=== PATIENT | female | born 1945 | race Caucasian/White ===

== ENCOUNTER 2018-01-03 12:16 | Observation (INO) | payer MEDICARE, BC ==
[2018-01-03] MEDS ORDERED: Ondansetron 4 MG/2 ML SDV IV PRN (13:03)
[2018-01-03] MEDS ORDERED: Temazepam 15 MG Cap PO PRN (13:03)
[2018-01-03] MEDS ORDERED: Acetaminophen 325 MG Tab PO PRN (13:03)
[2018-01-03] MEDS ORDERED: Calcium Carbonate 500 MG Tab.Chew PO PRN (13:09)
[2018-01-03] MEDS ORDERED: Triamcinolone Acetonide 0.1% Crm 15 GM Tube TOP PRN (13:10)
[2018-01-03 13:55] LABS: CHLORIDE,CL 105 mEq/L (98-106); SODIUM,NA 139 mEq/L (136-145)
[2018-01-03] MEDS: Lactated Ringers 1,000 ML IV SCH ×2 (14:31→23:00)
[2018-01-03] MEDS ORDERED: Enoxaparin 30 MG/0.3 ML Syringe SUBCUT SCH (16:00)
[2018-01-03] MEDS ORDERED: cefTRIAXone 1 GM Vial IVPUSH SCH (17:15)
[2018-01-04] MEDS: Lactated Ringers 1,000 ML IV SCH (07:11)
[2018-01-04] MEDS ORDERED: Aspirin 81 MG Tab.EC PO SCH (08:00)
[2018-01-04 08:38] VITALS: BP 114/62
--- NOTE | 2018-01-04 08:48 | PN ---
DATE: 01/04/2018 Zhanna Ochoa came in with [id number] Meniere's, vomiting and dehydration. On examination in the morning, her nystagmus is better. She is up moving around. Physical therapy has helped a little bit. We will probably try physical therapy today and go from there. ELSI/JEN /[id number]
--- NOTE | 2018-01-04 13:53 | DISCH ---
HOSPITAL COURSE: This is an elderly white female who came in to the clinic staggering, vomiting, nausea from severe Meniere's with dehydration, admitted to the hospital, started on IV fluids, physical therapy, responded nicely. At the time of discharge, she was up moving around. No further nausea or vomiting. She had difficulty vomiting because she has recently had a Pia fundoplication. Lab here in the hospital, CBC looked good. Panel 14 good. Urinalysis, 160 ketones. She was given 1 g of Rocephin, question UTI but I doubt she had that. DISPOSITION: The patient is now discharged home after two treatments of physical therapy. DISCHARGE MEDICATIONS: Home medications plus meclizine. DISCHARGE DIAGNOSIS: ACUTE MENIERE'S. ELSI/JEN /[id number]
== END 2018-01-04 11:10 | disposition home or self-care (01) ==
LOC: CC.MS 12:40 → UNDOADMOB 12:40 → CC.MS 13:03
PROVIDERS: ADMIT General Practice; ATTEND General Practice
DX: H81.09 Meniere's disease, unspecified ear (principal); E78.5 Hyperlipidemia, unspecified; Z88.8 Allergy status to other drugs, medicaments and biological substances; Z79.82 Long term (current) use of aspirin; Z79.899 Other long term (current) drug therapy
CPT/HCPCS: 36415; 70450; 80053; 81001; 83735; 84443; 85025; 96361; 96372; 96374; 97112-GP; A9270-GY; G0378; J0696; J1650; J7120

== ENCOUNTER → 2018-01-11 | Day surgery (SDC) | payer MEDICARE, BC ==
[~2018-01-11] MED LIST: Propofol 200 MG/20 ML SDV IV ONE
[2018-01-11] MEDS: Lactated Ringers 1,000 ML IV SCH (09:59)
[2018-01-11 11:44] VITALS: BP 104/61
--- NOTE | 2018-01-14 08:05 | OR ---
DATE OF OPERATION: 01/11/2018 PREOPERATIVE DIAGNOSIS: 1. GASTROESOPHAGEAL REFLUX DISEASE. 2. ALTERED BOWEL HABITS. POSTOPERATIVE DIAGNOSIS: 1. GASTROESOPHAGEAL REFLUX DISEASE. 2. ALTERED BOWEL HABITS. SURGEON: Ander Link MD PROCEDURE: 1. ESOPHAGOGASTRODUODENOSCOPY WITH BIOPSIES X2, STEFAN. 2. FULL-LENGTH COLONOSCOPY WITH RANDOM BIOPSIES X4. ANESTHESIA: RACE STARTER due to chronic GERD. COMPLICATIONS: None. SPECIMEN: 1. Antral biopsy x2. 2. Antral STEFAN. 3. Four random colon biopsies. FINDINGS: 1. Full-length EGD. 2. Antral gastritis with multiple erosions/ulcerations. 3. Intact lap Pia without obvious GERD or distal esophagitis. 4. Full-length colonoscopy. 5. Sigmoid diverticulosis, [id number]. RECOMMENDATIONS: Medical followup with Dr. Parrish. INDICATIONS: The patient has been having some ongoing issues with heartburn. She has had altered bowel habits in the form of alternating episodes of diarrhea and constipation. She sent for upper and lower endoscopy. DESCRIPTION OF PROCEDURE: The patient was prepped and draped, placed in the left lateral decubitus position. A lubricated Olympus gastroscope was inserted and easily intubated in the esophagus. Esophageal lining was benign in its entire course. The Z-line was crisp and sharp around 40 cm. There was no obvious or significant loosening of her prior lap Pia wrap. The scope was easily intubated in the stomach through the pylorus and in the 2nd portion of the duodenum. This and the duodenal bulb were completely benign. The scope was brought back into the stomach and retroflexed. The upper fundus and cardia appeared unremarkable. Wrap looks intact. Scope was straightened. The rest of the fundus was benign. The patient has diffuse antral gastritis. There were at least 8-10 small erosions that were all clot covered and healing over showing some diffuse peptic ulcer disease of the distal portion of the stomach. Two biopsies of the areas were taken along with a STEFAN test. Air was then suctioned from the stomach and the scope removed without complication. A lubricated Olympus colonoscope was then inserted and ultimately and safely advanced to the cecum. The patient is extremely redundant and intolerant to the scope, but we were able to visualize the ileocecal valve and appendiceal orifice. The bowel prep was adequate. Upon withdrawal of the scope throughout the entire length of the colon, I could find no signs of any polyps, mass, ulceration, or bleeding sites. No vascular abnormalities or signs of colitis. Scattered diverticula are seen in the sigmoid colon. I did do random biopsies of the right transverse, splenic flexure, and sigmoid area, just due to her chronic diarrhea but no gross abnormalities were seen. The rectal vault was unremarkable. Retroflexion of scope in the rectum showed no anal lesions. Air was suctioned. Scope removed without complication. BEAU/JEN /[id number]
== END ==
LOC: CC.SDS 09:42
PROVIDERS: ATTEND Family Medicine
DX: K57.30 Diverticulosis of large intestine without perforation or abscess without bleeding (principal); K29.70 Gastritis, unspecified, without bleeding; K31.89 Other diseases of stomach and duodenum; K25.9 Gastric ulcer, unspecified as acute or chronic, without hemorrhage or perforation; R19.4 Change in bowel habit; E78.5 Hyperlipidemia, unspecified; Z79.82 Long term (current) use of aspirin; Z79.899 Other long term (current) drug therapy; Z98.890 Other specified postprocedural states; Z88.1 Allergy status to other antibiotic agents; Z88.8 Allergy status to other drugs, medicaments and biological substances; Z90.710 Acquired absence of both cervix and uterus; Z72.0 Tobacco use
CPT/HCPCS: 87081; J2704; J7120

== ENCOUNTER 2024-02-07 07:24 | Inpatient (IN) | payer MEDICARE, BC ==
[2024-02-07 08:38] LABS: BASOPHILS ABSOLUTE AUTO 0.02 10^3/uL (0.00-0.50); BASOPHILS PERCENT AUTO 0.1 % (0-1); EOSINOPHILS ABSOLUTE AUTO 0.02 10^3/uL (0.00-1.50); EOSINOPHILS PERCENT AUTO 0.1 % (0-6); HEMATOCRIT 47.2 % (37.0-47.0); HEMOGLOBIN 15.8 g/dL (12.0-16.0); IMMATURE GRAN ABSOLUTE AUTO 0.06 10^3/uL (0.00-0.49); IMMATURE GRAN PERCENT AUTO 0.4 % (0.0-4.9); LYMPHOCYTES ABSOLUTE AUTO 1.72 10^3/uL (0.60-5.00); LYMPHOCYTES PERCENT AUTO 11.9 % (24-44); MEAN CORPUSCULAR HEMOGLOBIN 32.9 pg (27.0-32.0); MEAN CORPUSCULAR HGB CONC 33.5 g/dL (32.0-36.0); MEAN CORPUSCULAR VOLUME 98.3 fL (83.0-97.0); MONOCYTES ABSOLUTE AUTO 1.14 10^3/uL (0.00-1.50); MONOCYTES PERCENT AUTO 7.9 % (0-10); NEUTROPHILS ABSOLUTE AUTO 11.51 x10^3/uL (1.80-8.00); NEUTROPHILS PERCENT AUTO 79.6 % (41-71); PLATELET COUNT,PLT 246 10^3/uL (150-400); WHITE BLOOD CELL COUNT,WBC 14.5 10^3/uL (4.0-11.0)
[2024-02-07 08:39] LABS: APPEARANCE,URINE CLEAR (CLEAR); BILIRUBIN,URINE NEGATIVE (NEGATIVE); COLOR,URINE YELLOW (YELLOW); GLUCOSE,URINE NEGATIVE (NEGATIVE); KETONES,URINE NEGATIVE (NEGATIVE); LEUKOCYTE ESTERASE,URINE SMALL (NEGATIVE); NITRITE,URINE NEGATIVE (NEGATIVE); OCCULT BLOOD,URINE NEGATIVE (NEGATIVE); PROTEIN,URINE NEGATIVE (NEGATIVE); UROBILINOGEN,URINE 0.2 EU/dL (0.2-1.0)
[2024-02-07 08:53] LABS: ALANINE AMINOTRANSFERASE,ALT 48 U/L (12-78); ALBUMIN 3.3 g/dL (3.4-5.0); ALKALINE PHOSPHATASE 70 U/L (46-116); ASPARTATE AMNIOTRANSFERASE,AST 23 U/L (15-37); BILIRUBIN TOTAL 0.6 mg/dL (0.0-1.0); BLOOD UREA NITROGEN,BUN 17 mg/dL (7-18); C-REACTIVE PROTEIN < 0.50 mg/dL (<=0.50); CALCIUM 8.6 mg/dL (8.4-10.1); CARBON DIOXIDE,CO2 28 mmol/L (21-32); CHLORIDE,CL 105 mEq/L (98-106); CREATININE 0.9 mg/dL (0.6-1.0); ESTIMATED GFR 66 mL/min (>=60); GLUCOSE RANDOM 91 mg/dL (75-99); POTASSIUM,K 3.5 mEq/L (3.5-5.0); PROTEIN TOTAL,TP 6.4 g/dL (6.4-8.2); SODIUM,NA 142 mEq/L (136-145)
[2024-02-07 09:00] LABS: BACTERIA,URINE FEW /HPF (NOT SEEN); EPITHELIAL CELLS,URINE FEW /HPF (NOT SEEN); RBC,URINE 0-5 /HPF (0-5); WBC CLUMPS,URINE FEW /HPF (NOT SEEN)
[2024-02-07] MEDS: Ciprofloxacin in D5W 400 MG in Premix Bag 1 BAG IV ONE (09:23)
[2024-02-07] MEDS ORDERED: Triamcinolone Acetonide 0.1% Crm 15 GM Tube TOP PRN (10:55)
[2024-02-07] MEDS ORDERED: Polyethylene Glycol 3350 Powder 17 GM Packet PO PRN (10:55)
[2024-02-07] MEDS ORDERED: Ondansetron 4 MG/2 ML SDV IV PRN (10:55)
[2024-02-07] MEDS ORDERED: Docusate Sodium 100 MG Cap PO PRN (10:55)
[2024-02-07] MEDS ORDERED: Ondansetron 4 MG Tab.DIS PO PRN (10:55)
[2024-02-07] MEDS: Sodium Chloride 0.9% 1,000 ML IV STA (12:33)
[2024-02-07] MEDS: Magnesium Oxide 400 MG Tab PO SCH (19:44)
[2024-02-07] MEDS: Aspirin 81 MG Tab.EC PO SCH (19:44)
[2024-02-07] MEDS: Calcium Carbonate/Vitamin D3 1250 MG-5 MCG Tab PO SCH (19:44)
[2024-02-07] MEDS: Zinc Sulfate 220 MG Cap PO SCH (19:44)
[2024-02-07] MEDS: Enoxaparin 40 MG/0.4 ML Syringe SUBCUT SCH (19:45)
[2024-02-07] MEDS: Ciprofloxacin in D5W 400 MG in Premix Bag 1 BAG IV SCH (19:45)
[2024-02-07] MEDS ORDERED: Non-Formulary Medication 1 Each (Ubidecarenone [Co Q-10] 100 MG Capsule) PO SCH (20:00)
[2024-02-07] MEDS ORDERED: Non-Formulary Medication 1 Each (Fish Oil/Omega-3 Fatty Acids [Fish Oil 1,000 Mg] 1 GM Cap PO SCH (20:00)
[2024-02-07] MEDS: Acetaminophen 325 MG Tab PO PRN (21:19)
[2024-02-08] MEDS: ESTROGEN ESTER PO SCH (07:57)
[2024-02-08] MEDS: TESTOSTERONE PO SCH (07:57)
[2024-02-08 07:58] LABS: BASOPHILS ABSOLUTE AUTO 0.02 10^3/uL (0.00-0.50); BASOPHILS PERCENT AUTO 0.2 % (0-1); EOSINOPHILS ABSOLUTE AUTO 0.02 10^3/uL (0.00-1.50); EOSINOPHILS PERCENT AUTO 0.2 % (0-6); HEMATOCRIT 46.5 % (37.0-47.0); HEMOGLOBIN 15.6 g/dL (12.0-16.0); IMMATURE GRAN ABSOLUTE AUTO 0.04 10^3/uL (0.00-0.49); IMMATURE GRAN PERCENT AUTO 0.4 % (0.0-4.9); LYMPHOCYTES ABSOLUTE AUTO 1.58 10^3/uL (0.60-5.00); LYMPHOCYTES PERCENT AUTO 13.9 % (24-44); MEAN CORPUSCULAR HEMOGLOBIN 33.5 pg (27.0-32.0); MEAN CORPUSCULAR HGB CONC 33.5 g/dL (32.0-36.0); MONOCYTES ABSOLUTE AUTO 0.77 10^3/uL (0.00-1.50); MONOCYTES PERCENT AUTO 6.8 % (0-10); NEUTROPHILS ABSOLUTE AUTO 8.97 x10^3/uL (1.80-8.00); NEUTROPHILS PERCENT AUTO 78.5 % (41-71); PLATELET COUNT,PLT 243 10^3/uL (150-400); RED BLOOD CELL COUNT 4.65 x10^6/uL (4.00-5.50); WHITE BLOOD CELL COUNT,WBC 11.4 10^3/uL (4.0-11.0)
[2024-02-08] MEDS: Cholecalciferol (Vitamin D3) 5,000 UNIT Tab PO SCH (07:58)
[2024-02-08] MEDS: Ascorbic Acid 500 MG Tab PO SCH (07:58)
[2024-02-08] MEDS: Beta-Carotene (Vitamin A) w/Vitamin C & E plus Minerals Tab PO SCH (07:58)
[2024-02-08] MEDS ORDERED: Non-Formulary Medication 1 Each (Biotin [Biotin] 1 MG Tablet) PO SCH (08:00)
[2024-02-08] MEDS ORDERED: NIACIN 50 MG PO SCH (08:00)
[2024-02-08 08:28] LABS: CALCIUM 8.5 mg/dL (8.4-10.1); CREATININE 0.9 mg/dL (0.6-1.0); EST CRCL DRUG DOSING (CG) 41.4 mL/min; MAGNESIUM 1.8 mg/dL (1.8-2.4); POTASSIUM,K 3.5 mEq/L (3.5-5.0)
[2024-02-08] MEDS: Iopamidol 755 Mg/ML 100 ML Bottle IVPUSH ONE (08:33)
[2024-02-08 11:05] VITALS: BP 132/81; PULSE 74
[2024-02-08] MEDS ORDERED: Rosuvastatin 10 MG Tab PO SCH (20:00)
== END 2024-02-08 11:30 | DRG 52 ==
LOC: CC.ED 07:24 → CC.MS 09:29 → UNDOADMIN 09:48
PROVIDERS: ADMIT Nurse Practitioner; ATTEND Nurse Practitioner
DX: G82.22 Paraplegia, incomplete (principal); N30.00 Acute cystitis without hematuria; Z96.649 Presence of unspecified artificial hip joint; E78.00 Pure hypercholesterolemia, unspecified; Z88.8 Allergy status to other drugs, medicaments and biological substances; Z85.828 Personal history of other malignant neoplasm of skin; Z98.42 Cataract extraction status, left eye; Z98.41 Cataract extraction status, right eye; Z90.49 Acquired absence of other specified parts of digestive tract; Z90.710 Acquired absence of both cervix and uterus
CPT/HCPCS: 36415; 70450; 72127; 72130; 72133; 80048; 80053; 81001; 83605; 83735; 84484; 85025; 86140; 87040; 87086; 87804; 93005; 96374; 97161-GP; 99285-25; A9270-GY; J0744; J1650; J7030; Q9967; U0002

== ENCOUNTER 2025-06-16 12:47 | Emergency (ER) | payer MEDICARE, BC ==
[2025-06-16] MEDS: Ondansetron 4 MG/2 ML SDV IVPUSH STA (13:01)
[2025-06-16 13:05] LABS: BASOPHILS ABSOLUTE AUTO 0.02 10^3/uL (0.00-0.50); BASOPHILS PERCENT AUTO 0.3 % (0-1); EOSINOPHILS ABSOLUTE AUTO 0.07 10^3/uL (0.00-1.50); EOSINOPHILS PERCENT AUTO 1.2 % (0-6); IMMATURE GRAN ABSOLUTE AUTO 0.01 10^3/uL (0.00-0.49); IMMATURE GRAN PERCENT AUTO 0.2 % (0.0-4.9); LYMPHOCYTES ABSOLUTE AUTO 1.29 10^3/uL (0.60-5.00); LYMPHOCYTES PERCENT AUTO 21.6 % (24-44); MONOCYTES ABSOLUTE AUTO 0.52 10^3/uL (0.00-1.50); MONOCYTES PERCENT AUTO 8.7 % (0-10); NEUTROPHILS ABSOLUTE AUTO 4.05 x10^3/uL (1.80-8.00); NEUTROPHILS PERCENT AUTO 68.0 % (41-71); PLATELET COUNT,PLT 211 10^3/uL (150-400); RED BLOOD CELL COUNT 4.43 x10^6/uL (4.00-5.50); WHITE BLOOD CELL COUNT,WBC 6.0 10^3/uL (4.0-11.0)
[2025-06-16 13:22] LABS: ALANINE AMINOTRANSFERASE,ALT 30 U/L (12-78); ASPARTATE AMNIOTRANSFERASE,AST 27 U/L (15-37); BILIRUBIN TOTAL 0.4 mg/dL (0.0-1.0); BLOOD UREA NITROGEN,BUN 12 mg/dL (7-18); CARBON DIOXIDE,CO2 21 mmol/L (21-32); CHLORIDE,CL 103 mEq/L (98-106); CREATININE 0.9 mg/dL (0.6-1.0); GLUCOSE RANDOM 124 mg/dL (75-99); POTASSIUM,K 3.5 mEq/L (3.5-5.0); PROTEIN TOTAL,TP 6.9 g/dL (6.4-8.2); SODIUM,NA 139 mEq/L (136-145)
[2025-06-16 13:54] LABS: APPEARANCE,URINE CLEAR (CLEAR); GLUCOSE,URINE NEGATIVE (NEGATIVE); OCCULT BLOOD,URINE TRACE-INTACT (NEGATIVE)
[2025-06-16 13:55] LABS: ESTIMATED GFR 65 mL/min (>=60)
[2025-06-16 14:05] LABS: EPITHELIAL CELLS,URINE FEW /HPF (NOT SEEN)
[2025-06-16 14:09] VITALS: BP 135/83; PULSE 75
== END 2025-06-16 16:35 | disposition home or self-care (01) ==
LOC: CC.ED 12:47
DX: R42 Dizziness and giddiness (principal); E78.00 Pure hypercholesterolemia, unspecified; Z88.8 Allergy status to other drugs, medicaments and biological substances; Z79.82 Long term (current) use of aspirin; Z79.899 Other long term (current) drug therapy
CPT/HCPCS: 36415; 70450; 80053; 81001; 84484; 85025; 86140; 93005; 93010; 96361; 96374; 99284; 99284-25; A9270-GY; J2405; J7030